=== PATIENT | male | born 1995 | race Caucasian/White ===

== ENCOUNTER 2017-10-11 17:18 | Emergency (ER) | payer SELFPAY ==
[~2017-10-11] VITALS: Ht 180.3 cm; Wt 106.6 kg
--- NOTE | 2017-10-11 17:22 | ER Report ---
History and Physical Time Seen By MD: 17:21 HPI/ROS CHIEF COMPLAINT: Suicidal ideation without plan HISTORY OF PRESENT ILLNESS: 22-year-old male patient presents to emergency room with complaint of suicidal ideation. Patient states that he does much better when he is involved in busy with school and friends. He states that when he is by himself that he starts having some thoughts about harming himself. He states that he does not have a plan at this time. He states that he feels like he needs some help. He states that he has been seen for problems in the past. He states that he has significant amounts of anxiety with being in public. He states that he is doing well school, is not having any difficulties with school. He states that he does have a hard time focusing on his homework. He states that he currently is taking venlafaxine is doing well with that. REVIEW OF SYSTEMS: Respiratory: No cough, no dyspnea. Cardiovascular: No chest pain, no palpitations. Gastrointestinal: No vomiting, no abdominal pain. Musculoskeletal: No back pain. Allergies: Coded Allergies: No Known Drug Allergies (Unverified , 10/11/17) Home Meds No Active Prescriptions or Reported Meds Past Medical/Surgical History Patient has a past medical history of depression, anxiety. Patient has a surgical history of left knee repair. Reviewed Nurses Notes: Yes Constitutional Vital Sign - Last 24 Hours 10/11/17 17:23 Temp 98.1 Pulse 96 Resp 14 B/P (MAP) 144/95 Pulse Ox 96 O2 Delivery Room Air Physical Exam General Appearance: The patient is alert, has no immediate need for airway protection and no current signs of toxicity. ENT: Tympanic membranes are pearly-higuera, auditory canals are patent, mucous membranes are moist. Respiratory: Chest is non tender, lungs are clear to auscultation. Cardiac: regular rate and rhythm Gastrointestinal: Abdomen is soft and non tender, no masses, bowel sounds normal. Musculoskeletal: Neck: Neck is supple and non tender. Extremities have full range of motion and are non tender. Skin: No rashes or lesions. Psych: Patient speaks with a slightly slow rate of speech, has a difficult time maintaining eye contact. DIFFERENTIAL DIAGNOSIS: After history and physical exam differential diagnosis was considered for depression, suicidal ideation. Medical Decision Making Data Points Result Diagram: 10/11/17 1726 10/11/17 1726 Laboratory Hematology Test 10/11/17 17:26 Red Blood Count 5.74 M/uL (4.00-5.60) Mean Corpuscular Volume 79.1 fL (80.0-96.0) Mean Corpuscular Hemoglobin 27.2 pg (26.0-33.0) Mean Corpuscular Hemoglobin Concent 34.3 g/dL (32.0-36.0) Red Cell Distribution Width 13.7 % (11.5-14.5) Mean Platelet Volume 8.8 fL (7.2-11.1) Neutrophils (%) (Auto) 69.8 % (39.4-72.5) Lymphocytes (%) (Auto) 20.5 % (17.6-49.6) Monocytes (%) (Auto) 7.5 % (4.1-12.4) Eosinophils (%) (Auto) 1.9 % (0.4-6.7) Basophils (%) (Auto) 0.3 % (0.3-1.4) Nucleated RBC Relative Count (auto) 0.0 /100WBC Neutrophils # (Auto) 4.6 K/uL (2.0-7.4) Lymphocytes # (Auto) 1.3 K/uL (1.3-3.6) Monocytes # (Auto) 0.5 K/uL (0.3-1.0) Eosinophils # (Auto) 0.1 K/uL (0.0-0.5) Basophils # (Auto) 0.0 K/uL (0.0-0.1) Nucleated RBC Absolute Count (auto) 0.00 K/uL Urine Color Yellow Urine Clarity Clear Urine pH 6.0 pH (4.8-9.5) Urine Specific [place] 1.014 Urine Protein Negative mg/dL (NEGATIVE) Urine Glucose (UA) Negative mg/dL (NEGATIVE) Urine Ketones Negative mg/dL (NEGATIVE) Urine Blood Negative (NEGATIVE) Urine Nitrite Negative (NEGATIVE) Urine Bilirubin Negative (NEGATIVE) Urine Urobilinogen Negative mg/dL (0.2-1.9) Urine Leukocyte Esterase Negative (NEGATIVE) Urine RBC <1 /HPF (0-2/HPF) Urine WBC 1 /HPF (0-5/HPF) Urine Squamous Epithelial Cells Few /LPF (</=FEW) Urine Bacteria Negative /HPF (NONE-FEW) Urine Mucus None /HPF (NONE-FEW) Sodium Level 140 mmol/L (137-145) Potassium Level 3.9 mmol/L (3.5-5.0) Chloride Level 101 mmol/L (98-107) Carbon Dioxide Level 26 mmol/L (22-30) Blood Urea Nitrogen 12 mg/dl (9-21) Creatinine 0.90 mg/dl (0.66-1.25) Glomerular Filtration Rate Calc > 60.0 Random Glucose 85 mg/dl (75-110) Calcium Level 9.4 mg/dl (8.4-10.2) Magnesium Level 1.9 mg/dl (1.7-2.2) Total Bilirubin 0.5 mg/dl (0.2-1.3) Aspartate Amino Transf (AST/SGOT) 44 U/L (0-35) Alanine Aminotransferase (ALT/SGPT) 105 U/L (0-56) Alkaline Phosphatase 115 U/L (0-126) Total Protein 8.2 gm/dl (6.3-8.2) Albumin 4.3 g/dl (3.5-5.0) Salicylates Level < 10 mg/L Salicylate Last Dose Date unk Urine Opiates Screen Negative Acetaminophen Level < 10 ug/ml Urine Barbiturates Screen Negative Ur Tricyclic Antidepressants Screen Negative Urine Phencyclidine Screen Negative Urine Amphetamines Screen Negative Urine Benzodiazepines Screen Negative Urine Cocaine Screen Negative Urine Cannabinoids Screen Negative Serum Alcohol < 10 mg/dl Chemistry Test 10/11/17 17:26 White Blood Count 6.5 k/uL (4.5-11.0) Red Blood Count 5.74 M/uL (4.00-5.60) Hemoglobin 15.6 g/dL (14.0-18.0) Hematocrit 45.4 % (42.0-52.0) Mean Corpuscular Volume 79.1 fL (80.0-96.0) Mean Corpuscular Hemoglobin 27.2 pg (26.0-33.0) Mean Corpuscular Hemoglobin Concent 34.3 g/dL (32.0-36.0) Red Cell Distribution Width 13.7 % (11.5-14.5) Platelet Count 269 K/uL (150-450) Mean Platelet Volume 8.8 fL (7.2-11.1) Neutrophils (%) (Auto) 69.8 % (39.4-72.5) Lymphocytes (%) (Auto) 20.5 % (17.6-49.6) Monocytes (%) (Auto) 7.5 % (4.1-12.4) Eosinophils (%) (Auto) 1.9 % (0.4-6.7) Basophils (%) (Auto) 0.3 % (0.3-1.4) Nucleated RBC Relative Count (auto) 0.0 /100WBC Neutrophils # (Auto) 4.6 K/uL (2.0-7.4) Lymphocytes # (Auto) 1.3 K/uL (1.3-3.6) Monocytes # (Auto) 0.5 K/uL (0.3-1.0) Eosinophils # (Auto) 0.1 K/uL (0.0-0.5) Basophils # (Auto) 0.0 K/uL (0.0-0.1) Nucleated RBC Absolute Count (auto) 0.00 K/uL Urine Color Yellow Urine Clarity Clear Urine pH 6.0 pH (4.8-9.5) Urine Specific [place] 1.014 Urine Protein Negative mg/dL (NEGATIVE) Urine Glucose (UA) Negative mg/dL (NEGATIVE) Urine Ketones Negative mg/dL (NEGATIVE) Urine Blood Negative (NEGATIVE) Urine Nitrite Negative (NEGATIVE) Urine Bilirubin Negative (NEGATIVE) Urine Urobilinogen Negative mg/dL (0.2-1.9) Urine Leukocyte Esterase Negative (NEGATIVE) Urine RBC <1 /HPF (0-2/HPF) Urine WBC 1 /HPF (0-5/HPF) Urine Squamous Epithelial Cells Few /LPF (</=FEW) Urine Bacteria Negative /HPF (NONE-FEW) Urine Mucus None /HPF (NONE-FEW) Glomerular Filtration Rate Calc > 60.0 Calcium Level 9.4 mg/dl (8.4-10.2) Magnesium Level 1.9 mg/dl (1.7-2.2) Total Bilirubin 0.5 mg/dl (0.2-1.3) Aspartate Amino Transf (AST/SGOT) 44 U/L (0-35) Alanine Aminotransferase (ALT/SGPT) 105 U/L (0-56) Alkaline Phosphatase 115 U/L (0-126) Total Protein 8.2 gm/dl (6.3-8.2) Albumin 4.3 g/dl (3.5-5.0) Salicylates Level < 10 mg/L Salicylate Last Dose Date unk Urine Opiates Screen Negative Acetaminophen Level < 10 ug/ml Urine Barbiturates Screen Negative Ur Tricyclic Antidepressants Screen Negative Urine Phencyclidine Screen Negative Urine Amphetamines Screen Negative Urine Benzodiazepines Screen Negative Urine Cocaine Screen Negative Urine Cannabinoids Screen Negative Serum Alcohol < 10 mg/dl Toxicology Test 10/11/17 17:26 Salicylates Level < 10 mg/L Salicylate Last Dose Date unk Urine Opiates Screen Negative Acetaminophen Level < 10 ug/ml Urine Barbiturates Screen Negative Ur Tricyclic Antidepressants Screen Negative Urine Phencyclidine Screen Negative Urine Amphetamines Screen Negative Urine Benzodiazepines Screen Negative Urine Cocaine Screen Negative Urine Cannabinoids Screen Negative Serum Alcohol < 10 mg/dl Urinalysis Test 10/11/17 17:26 Urine Color Yellow Urine Clarity Clear Urine pH 6.0 pH (4.8-9.5) Urine Specific [place] 1.014 Urine Protein Negative mg/dL (NEGATIVE) Urine Glucose (UA) Negative mg/dL (NEGATIVE) Urine Ketones Negative mg/dL (NEGATIVE) Urine Blood Negative (NEGATIVE) Urine Nitrite Negative (NEGATIVE) Urine Bilirubin Negative (NEGATIVE) Urine Urobilinogen Negative mg/dL (0.2-1.9) Urine Leukocyte Esterase Negative (NEGATIVE) Urine RBC <1 /HPF (0-2/HPF) Urine WBC 1 /HPF (0-5/HPF) Urine Squamous Epithelial Cells Few /LPF (</=FEW) Urine Bacteria Negative /HPF (NONE-FEW) Urine Mucus None /HPF (NONE-FEW) ED Course/Re-evaluation ED Course Patient was admitted to exam room, history of physical were obtained. Differential diagnoses were considered. On examination patient does have a slow rate of speech, has a difficult time maintaining eye contact. He states he is not sure that he needs to be admitted to the behavioral health unit. The behavioral health it technician came down and spoke with him. I talked about options and did give him some information for follow-up. They agreed that he would follow-up tomorrow if his condition worsens. After he left in lead received all the lab work for a behavioral health admission, which were unremarkable. I did go into the patient. Patient states he feels better about going home. He states he is not having any plans at this time. We discussed returning if his condition worsens, including development of suicidal plans. Patient verbalized understanding and agreement. He is to follow-up with [facility] through the [facility] early next week. He is to return to emergency room if condition worsens. Patient verbalized understanding and agreement with plan. Decision to Disposition Date: Oct 11, 2017 Decision to Disposition Time: 18:46 Depart Departure Latest Vital Signs Vital Signs Date Time Temp Pulse Resp B/P (MAP) Pulse Ox O2 Delivery O2 Flow Rate FiO2 10/11/17 17:23 98.1 96 14 144/95 96 Room Air Impression: Primary Impression: Depression Additional Impression: Suicidal thoughts Condition: Improved Disposition: HOME OR SELF-CARE New Scripts No Active Prescriptions or Reported Meds Patient Instructions: Depression (ED), Suicide Prevention for Adults (ED) Additional Instructions: Get plenty of rest. Return to the ER if condition worsens. Follow up with [facility] early this next week. Continue with your current medications. You may call the Crisis Line with any problems. Problem Qualifiers Primary Impression: Depression Depression Type: major depressive disorder Major depression recurrence: single episode Active/Remission status: currently active Major depression episode severity: moderate Qualified Codes: F32.1 - Major depressive disorder , single episode, moderate JOSE R LEPE Oct 11, 2017 17:22
[2017-10-11 17:23] VITALS: BP 144/95
[2017-10-11 18:12] LABS: PLATELET COUNT, AUTOMATED 269 K/uL (150-450)
== END 2017-10-11 18:52 | disposition home or self-care (01) ==
LOC: ER 17:25
DX: F32.1 Major depressive disorder, single episode, moderate (principal); R45.851 Suicidal ideations
CPT/HCPCS: 36415; 80305; 80320; 80329; 81001; 82040; 82247; 82310; 82374; 82435; 82565; 82947; 83735; 84075; 84132; 84155; 84295; 84443; 84450; 84460; 84520; 85025; 99282

== ENCOUNTER 2017-12-16 22:24 | Emergency (ER) | payer OTHER ==
--- NOTE | 2017-12-16 22:26 | ER Report ---
History and Physical Time Seen By MD: 22:26 HPI/ROS CHIEF COMPLAINT: Left ankle injury HISTORY OF PRESENT ILLNESS: Patient is a 22-year-old male who presents to emergency department for evaluation of left ankle injury that occurred playing basketball earlier this evening. 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 He is supposed to be wearing a brace however this brace no longer functions and tonight while playing basketball yesterday and an inversion injury and has pain to the lateral aspect of the malleolus. He also has pain along the medial aspect of the foot. He is still ambulatory but with a limp. Allergies: Coded Allergies: No Known Drug Allergies (Unverified , 10/11/17) Home Meds Reported Medications Fluoxetine Hcl (PROZAC) 10 Mg Capsule, PO QDAY, CAPSULE 12/16/17 Past Medical/Surgical History History of left foot drop Hx Substance Use Disorder: No Hx Alcohol Use: No Constitutional Vital Sign - Last 24 Hours 12/16/17 12/16/17 12/16/17 12/16/17 22:37 22:39 22:39 22:54 Temp 98.6 Pulse 104 110 102 Resp 16 B/P (MAP) 129/92 (104) 129/92 Pulse Ox 94 94 94 O2 Delivery Room Air 12/16/17 12/16/17 12/16/17 12/16/17 23:00 23:09 23:24 23:30 Pulse 104 90 B/P (MAP) 122/84 (97) 124/80 (95) Pulse Ox 95 95 12/16/17 23:39 Pulse 92 Pulse Ox 94 Physical Exam General appearance: alert no distress Left ankle: There is no significant swelling. There is no obvious deformity to the ankle. There is moderate tenderness to the lateral malleolus. Ankle joint is stable and there is no tenderness over the achilles tendon. The foot is somewhat tender along the medial aspect obvious swelling Neurologic exam: The patient has normal sensation distal to the injury. Vascular exam: Normal pulses and capillary refill in the foot [ ] DIFFERENTIAL DIAGNOSIS: After history and physical exam differential diagnosis was considered for ankle injury including sprain, fracture, dislocation and soft tissue injury. Medical Decision Making ED Course/Re-evaluation ED Course 12/16/2017 10:51:04 pm plan at this time will be x-ray of the foot and ankle. Decision to Disposition Date: Dec 16, 2017 Decision to Disposition Time: 23:36 Depart Departure Latest Vital Signs Vital Signs Date Time Temp Pulse Resp B/P (MAP) Pulse Ox O2 Delivery O2 Flow Rate FiO2 12/16/17 23:39 92 94 12/16/17 23:30 124/80 (95) 12/16/17 22:39 98.6 16 Room Air Impression: Primary Impression: Ankle sprain Condition: Improved Disposition: HOME OR SELF-CARE Patient Instructions: Ankle Sprain (ED) Additional Instructions: Take Motrin or Tylenol as directed for pain Problem Qualifiers Primary Impression: Ankle sprain Encounter type: initial encounter Involved ligament of ankle: anterior talofibular ligament Laterality: left Qualified Codes: S93.492A - Sprain of other ligament of left ankle, initial encounter MAHOGANY BENAVIDEZ MD Dec 16, 2017 22:26
[2017-12-16] MEDS ORDERED: FLUO-201 PO (22:42)
[2017-12-16 23:30] VITALS: BP 124/80
--- NOTE | 2017-12-16 23:34 | RADIOLOGY IMAGING REPORT ---
FACILITY: [facility] - [place] PATIENT NAME: Lexx Sanchez : 1995 MR: [id number] V: [id number] EXAM DATE: ORDERING PHYSICIAN: MAHOGANY BENAVIDEZ TECHNOLOGIST: Location: [facility] Patient: Lexx Sanchez : 1995 Visit/Account:[id number] Date of Sevice: 12/16/2017 FOOT 3 VIEW LEFT COMPARISONS: None. ADDITIONAL PERTINENT HISTORY: Pain FINDINGS: Osseous structures: Negative. Joint spaces: Negative. Surrounding soft tissues: Negative. IMPRESSION: Normal views of the left foot. Report Dictated By: Julio Barrios MD at 12/16/2017 11:29 PM Report E-Signed By: Julio Barrios MD at 12/16/2017 11:30 PM WSN:[id number]
--- NOTE | 2017-12-16 23:34 | RADIOLOGY IMAGING REPORT ---
FACILITY: PATIENT NAME: Lexx Sanchez : 1995 MR: [id number] V: [id number] EXAM DATE: ORDERING PHYSICIAN: MAHOGANY BENAVIDEZ TECHNOLOGIST: Location: [facility] Patient: Lexx Sanchez : 1995 Visit/Account:[id number] Date of Sevice: 12/16/2017 ANKLE 3 VIEW MIN LEFT COMPARISONS: None. ADDITIONAL PERTINENT HISTORY: Pain FINDINGS: Osseous structures: Negative. Joint spaces: Negative. Surrounding soft tissues: Lateral malleolar soft tissue swelling. IMPRESSION: 1. Lateral malleolar soft tissue swelling. 2. No underlying bony fractures. Report Dictated By: Julio Barrios MD at 12/16/2017 11:28 PM Report E-Signed By: Julio Barrios MD at 12/16/2017 11:29 PM WSN:[id number]
== END 2017-12-16 23:50 | disposition home or self-care (01) ==
LOC: ER 22:32
DX: S93.492A Sprain of other ligament of left ankle, initial encounter (principal); X58.XXXA Exposure to other specified factors, initial encounter; Y93.67 Activity, basketball
CPT/HCPCS: 99283; L1930